=== PATIENT | male | born 1940 | race Caucasian/White ===

== ENCOUNTER 2024-01-16 11:23 | Inpatient (IN) | payer MEDICARE, OTHER ==
[~2024-01-16 11:23] MED LIST: Iopamidol-370 76% 500 ML MDV (1 ML CHARGE) ONE
[2024-01-16 12:18] LABS: #Basophils Less than 0.03 10x3/uL (0.0-0.2); %Basophils 0.2 % (0.0-1.0); %Eosinophils 1.1 % (0.0-10.0); %Neutrophils 81.3 % (42.0-75.0); Hematocrit 41.7 % (42.0-52.0); Mean Corpuscular HGB CONC 33.6 g/dL (32.0-36.0); Mean Corpuscular Hemoglobin 31.6 pg (27.0-31.0); Mean Corpuscular Volume 94.1 fL (78.0-98.0); Mean Platelet Volume 11.1 fL (7.4-10.4); Platelet Count 215 10x3/uL (130-400); RBC Distribution Width 13.2 % (11.5-14.5); Red Blood Cell (RBC) Count 4.43 mill/uL (4.70-6.10)
[2024-01-16 12:48] LABS: ALT (SGPT) 17 U/L (8-55); AST (SGOT) 23 U/L (5-34); Albumin 3.9 g/dL (3.4-4.8); Alkaline Phosphatase 72 U/L (40-110); Anion Gap 12 mmol/L (10-20); BUN (Urea Nitrogen) 21 mg/dL (8.4-25.7); Bilirubin, Total 1.2 mg/dL (0.2-1.2); Calc. Creatinine Clearance 0 mL/min (70-130); Calcium 9.5 mg/dL (7.8-10.44); Carbon Dioxide 28 mmol/L (23-31); Chloride 103 mmol/L (98-107); Estimated GFR 60; Glucose 90 mg/dL (83-110); Potassium 4.4 mmol/L (3.5-5.1); Protein, Total 6.9 g/dL (5.8-8.1); Sodium 139 mmol/L (136-145)
[2024-01-16] MEDS ORDERED: Ondansetron PF 4 MG/2 ML Vial ONE (13:15)
[2024-01-16] MEDS ORDERED: Morphine 2 MG/ML VIAL ONE (13:15)
[2024-01-16 13:44] LABS: Bilirubin Negative (Negative); Blood, Urine 1+ (Negative); CAUTI Indications for Culture Dysuria,urgency,freq; Clarity Clear (Clear); Glucose, Urine (Dipstick) Normal (Negative); Ketone, Urine Negative (Negative); Leukocyte 25 Leu/uL (Negative); Nitrite Negative (Negative); Protein, Urine (Dipstick) Negative (Neg-Trace); RBC/HPF 0-3 HPF (0-3); Specific Gravity, Urine 1.007 (1.002-1.036); Squamous Epithelial 0-3 HPF (0-3); Urobilinogen Normal mg/dL (Less than 2); WBC/HPF 0-3 HPF (0-3)
[2024-01-16 13:57] LABS: Bacteria/HPF Rare-Few HPF (None Seen)
[2024-01-16 13:59] LABS: Urine Culture Reflex No No
[2024-01-16] MEDS ORDERED: Ondansetron PF 4 MG/2 ML Vial IVP PRN (15:27)
[2024-01-16] MEDS ORDERED: traMADol HCl 50 MG TAB PO PRN (15:27)
[2024-01-16] MEDS ORDERED: hydrALAZINE 20 MG/ML VIAL SLOW IVP PRN (15:27)
[2024-01-16] MEDS ORDERED: Dextrose 50% Abboject 50 ML SYRINGE SLOW IVP PRN (15:27)
[2024-01-16] MEDS ORDERED: Glucagon 1 MG/ML KIT IM PRN (15:27)
[2024-01-16] MEDS ORDERED: Ondansetron ODT 4 MG TAB PO PRN (15:27)
[2024-01-16] MEDS ORDERED: Dextrose 5% in Water 1,000 ML IV PRN (15:27)
[2024-01-16] MEDS ORDERED: Morphine 4 MG/ML VIAL ONE (15:36)
[2024-01-16 17:12] VITALS: BMI 22.3
[2024-01-16] MEDS: Morphine 2 MG/ML VIAL SLOW IVP PRN (19:41)
[2024-01-16] MEDS: Atorvastatin Calcium 10 MG TAB PO SCH (20:57)
[2024-01-16] MEDS: Famotidine 20 MG TAB PO SCH (20:57)
[2024-01-17 05:14] LABS: #Basophils 0.03 10x3/uL (0.0-0.2); %Basophils 0.2 % (0.0-1.0); %Eosinophils 0.4 % (0.0-10.0); %Lymphocytes 8.4 % (21.0-51.0); %Monocytes 10.4 % (0.0-10.0); %Neutrophils 80.2 % (42.0-75.0); Hematocrit 39.9 % (42.0-52.0); Mean Corpuscular HGB CONC 32.6 g/dL (32.0-36.0); Mean Corpuscular Hemoglobin 31.1 pg (27.0-31.0); Mean Corpuscular Volume 95.5 fL (78.0-98.0); Mean Platelet Volume 11.3 fL (7.4-10.4); Platelet Count 179 10x3/uL (130-400); RBC Distribution Width 13.1 % (11.5-14.5); Red Blood Cell (RBC) Count 4.18 mill/uL (4.70-6.10)
[2024-01-17 05:37] LABS: Anion Gap 16 mmol/L (10-20); BUN (Urea Nitrogen) 24 mg/dL (8.4-25.7); Calc. Creatinine Clearance 51 mL/min (70-130); Calcium 9.1 mg/dL (7.8-10.44); Carbon Dioxide 24 mmol/L (23-31); Chloride 102 mmol/L (98-107); Estimated GFR 64; Glucose 70 mg/dL (83-110); Potassium 4.2 mmol/L (3.5-5.1); Sodium 138 mmol/L (136-145)
[2024-01-17] MEDS: Metoprolol Tartrate 25 MG TAB PO SCH (08:37)
[2024-01-17] MEDS: Furosemide 20 MG TAB PO SCH (08:37)
[2024-01-17] MEDS: Gabapentin 300 MG CAP PO SCH (08:37)
[2024-01-17] MEDS: Methocarbamol 500 MG TAB PO PRN (20:08)
[2024-01-17] MEDS: HYDROcodone/Acetaminophen 5/325 mg Tablet PO PRN (21:28)
[2024-01-18 07:43] LABS: #Basophils Less than 0.03 10x3/uL (0.0-0.2); %Basophils 0.1 % (0.0-1.0); %Eosinophils 0.4 % (0.0-10.0); %Lymphocytes 8.6 % (21.0-51.0); %Monocytes 9.6 % (0.0-10.0); Hematocrit 36.7 % (42.0-52.0); Hemoglobin 12.3 g/dL (14.0-18.0); Mean Corpuscular HGB CONC 33.5 g/dL (32.0-36.0); Mean Corpuscular Hemoglobin 31.9 pg (27.0-31.0); Mean Corpuscular Volume 95.3 fL (78.0-98.0); Platelet Count 178 10x3/uL (130-400); RBC Distribution Width 13.2 % (11.5-14.5); Red Blood Cell (RBC) Count 3.85 mill/uL (4.70-6.10)
[2024-01-18] MEDS: Acetaminophen 325 MG TAB PO PRN (09:28)
[2024-01-18] MEDS: Lactated Ringer's 1,000 ML IV SCH (18:28)
[2024-01-19] MEDS: Enoxaparin 40 MG (0.4 mL) SYRINGE SC SCH (20:39)
[2024-01-19] MEDS: Metoprolol Tartrate 25 MG TAB PO SCH (20:40)
[2024-01-20 08:03] LABS: #Basophils Less than 0.03 10x3/uL (0.0-0.2); %Basophils 0.3 % (0.0-1.0); %Eosinophils 4.2 % (0.0-10.0); %Lymphocytes 18.1 % (21.0-51.0); %Monocytes 10.8 % (0.0-10.0); %Neutrophils 66.3 % (42.0-75.0); Hematocrit 34.6 % (42.0-52.0); Hemoglobin 11.6 g/dL (14.0-18.0); Mean Corpuscular HGB CONC 33.5 g/dL (32.0-36.0); Mean Corpuscular Volume 95.6 fL (78.0-98.0); Mean Platelet Volume 11.1 fL (7.4-10.4); Platelet Count 186 10x3/uL (130-400); RBC Distribution Width 12.8 % (11.5-14.5); Red Blood Cell (RBC) Count 3.62 mill/uL (4.70-6.10)
[2024-01-20 08:17] LABS: Anion Gap 11 mmol/L (10-20); BUN (Urea Nitrogen) 16 mg/dL (8.4-25.7); Calc. Creatinine Clearance 68 mL/min (70-130); Calcium 8.8 mg/dL (7.8-10.44); Carbon Dioxide 27 mmol/L (23-31); Chloride 103 mmol/L (98-107); Estimated GFR 86; Glucose 85 mg/dL (83-110); Potassium 3.9 mmol/L (3.5-5.1); Sodium 137 mmol/L (136-145)
[2024-01-20] MEDS: Senokot S 8.6-50 MG TAB PO SCH (20:22)
[2024-01-21 12:20] VITALS: BP 133/68; TEMP 98.2
== END 2024-01-21 13:37 | DRG 552 ==
LOC: ERS 11:23 → SURG B 16:45 → OBSVTOIN 01-17 10:25
PROVIDERS: ADMIT Surgery; ATTEND Surgery
DX: S32.031A Stable burst fracture of third lumbar vertebra, initial encounter for closed fracture (principal); C18.9 Malignant neoplasm of colon, unspecified; S32.028A Other fracture of second lumbar vertebra, initial encounter for closed fracture; M51.46 Schmorl's nodes, lumbar region; I10 Essential (primary) hypertension; E78.5 Hyperlipidemia, unspecified; C61 Malignant neoplasm of prostate; G20.A1 Parkinson's disease without dyskinesia, without mention of fluctuations; Z96.652 Presence of left artificial knee joint; W19.XXXA Unspecified fall, initial encounter; F02.80 Dementia in other diseases classified elsewhere, unspecified severity, without behavioral disturbance, psychotic disturbance, mood disturbance, and anxiety; Z96.641 Presence of right artificial hip joint; Z98.890 Other specified postprocedural states; Z87.891 Personal history of nicotine dependence; Z88.1 Allergy status to other antibiotic agents; Z88.5 Allergy status to narcotic agent; Z79.899 Other long term (current) drug therapy; Z90.49 Acquired absence of other specified parts of digestive tract
CPT/HCPCS: 36415; 36416; 70450; 74177; 80048; 80053; 81001; 85025; 93005; 93010; 96376; G0378; G0390; J1650; J2270; J2272; J2405; J7120; Q9967

== ENCOUNTER 2024-04-13 13:44 | Outpatient (CLI) | payer MEDICARE, OTHER | END 2024-04-13 13:45 | disposition home or self-care (01) | LOC: RAD 13:44 | PROVIDERS: ATTEND Neurological Surgery | DX: S32.031A Stable burst fracture of third lumbar vertebra, initial encounter for closed fracture (principal); M47.816 Spondylosis without myelopathy or radiculopathy, lumbar region | CPT/HCPCS: 72100 ==